=== PATIENT | female | born 1960 | race Caucasian/White ===

== ENCOUNTER 2020-07-22 11:30 | Observation (INO) ==
[2020-07-22] MEDS ORDERED: Prochlorperazine 10 MG/2 ML VIAL IVP ONE (11:46)
[2020-07-22 12:04] LABS: Prothrombin Time 11.7 Seconds (9.4-12.1)
[2020-07-22 12:12] LABS: Basophils # 0.1 K/mcL (0.0-0.2); Basophils % 0.7 %; Eosinophils # 0.4 K/mcL (0.0-0.6); Eosinophils % 3.6 %; Hematocrit 37.7 % (35.3-44.9); Hemoglobin 11.1 g/dL (11.5-15.4); Immature Granulocytes % 0.3 % (0-4); Lymphocytes # 2.6 K/mcL (0.6-4.6); Lymphocytes % 26.4 %; Mean Corpuscular HGB Conc 29.4 g/dL (31.6-35.5); Mean Corpuscular Hemoglobin 23.5 pg (28.0-33.3); Mean Corpuscular Volume 79.9 fL (83.0-100.0); Mean Platelet Volume 9.8 fL (9.4-12.4); Monocytes # 0.8 K/mcL (0.0-1.3); Platelet Count 267 K/mcL (140-400); Red Blood Count 4.72 M/mcL (3.82-4.97); Red Cell Distribution Width 16.4 % (11.5-14.5); White Blood Count 9.9 K/mcL (4.3-11.1)
[2020-07-22 12:14] LABS: BUN/Creatinine Ratio 18 (6-26); Blood Urea Nitrogen 15 mg/dL (6-20); Calcium 8.9 mg/dL (8.6-10.3); Carbon Dioxide 28 mEq/L (23-29); Chloride 105 mEq/L (98-107); Glucose 91 mg/dL (70-105); Osmolality,Calculated 290 (280-300); Potassium 4.2 mEq/L (3.5-5.1); Sodium 140 mEq/L (136-145); Troponin I < 0.03 ng/mL (< 0.04); eGFR For African Americans > 60 (> 60); eGFR For Non-African Americans > 60 (> 60)
[2020-07-22 12:31] LABS: Bilirubin,Urine Negative (Negative); Blood,Urine Negative (Negative); Clarity,Urine Clear (Clear); Color,Urine Yellow (Yellow); Glucose,Urine (UA) Normal (Normal); Ketones,Urine Negative (Negative); Leukocyte Esterase,Urine Negative (Negative); Nitrite,Urine Negative (Negative); Protein,Urine Trace mg/dL (Neg-Trace); Specific Gravity,Urine 1.024 (1.010-1.025); Urobilinogen,Urine Normal (Normal)
[2020-07-22] MEDS ORDERED: CLINDAMYCIN IVPB ONE (12:53)
[2020-07-22] MEDS ORDERED: SODIUM CHLORIDE 0.9% IVPB ONE (12:53)
[2020-07-22] MEDS ORDERED: Ibuprofen 400 MG TABLET PO ONE (12:57)
[2020-07-22] MEDS ORDERED: Naloxone 0.4 MG/ML INJ IVP PRN (15:44)
[2020-07-22] MEDS ORDERED: Acetaminophen 325 MG TABLET PO PRN (15:44)
[2020-07-22] MEDS ORDERED: Perflutren Lipid Microsphere 1.3 ML in 0.9 % Sodium Chloride 8.7 ML IVP PRN (15:47)
[2020-07-22] MEDS: cefTRIAXone 1,000 MG in Water for inj. (sterile) 10 ML IVP SCH (16:13)
[2020-07-22] MEDS ORDERED: Aspirin 325 MG TABLET PO ONE (16:38)
[2020-07-22] MEDS: *HR* Heparin 5,000 UNIT/ML VIAL SQ SCH (17:17)
[2020-07-22] MEDS ORDERED: Ibuprofen 400 MG TABLET PO PRN (18:17)
[2020-07-22] MEDS: Pregabalin 75 MG CAPSULE PO SCH (20:24)
[2020-07-22] MEDS: lamoTRIgine 100 MG TABLET PO SCH (20:24)
[2020-07-22] MEDS ORDERED: Fluticasone Propionate Nasal 50 MCG/SPRAY BOTTLE NS SCH (21:00)
[2020-07-22] MEDS ORDERED: ARIPiprazole 5 MG TABLET PO SCH (21:00)
[2020-07-23 02:54] LABS: Basophils % 0.7 %; Eosinophils # 0.3 K/mcL (0.0-0.6); Eosinophils % 4.8 %; Hematocrit 34.6 % (35.3-44.9); Hemoglobin 10.3 g/dL (11.5-15.4); Immature Granulocytes % 0.2 % (0-4); Lymphocytes # 2.3 K/mcL (0.6-4.6); Lymphocytes % 40.8 %; Mean Corpuscular HGB Conc 29.8 g/dL (31.6-35.5); Mean Corpuscular Hemoglobin 24.1 pg (28.0-33.3); Mean Corpuscular Volume 80.8 fL (83.0-100.0); Monocytes # 0.5 K/mcL (0.0-1.3); Neutrophils # 2.5 K/mcL (1.6-8.9); Platelet Count 213 K/mcL (140-400); Red Blood Count 4.28 M/mcL (3.82-4.97); Red Cell Distribution Width 16.8 % (11.5-14.5); Segmented Neutrophils % 44.5 %; White Blood Count 5.6 K/mcL (4.3-11.1)
[2020-07-23 03:16] LABS: Chol/HDL Ratio 3.9 (0-4.9)
[2020-07-23 03:17] LABS: BUN/Creatinine Ratio 19 (6-26); Blood Urea Nitrogen 15 mg/dL (6-20); Calcium 8.6 mg/dL (8.6-10.3); Carbon Dioxide 28 mEq/L (23-29); Chloride 106 mEq/L (98-107); Glucose 95 mg/dL (70-105); Osmolality,Calculated 293 (280-300); Potassium 3.9 mEq/L (3.5-5.1); Sodium 141 mEq/L (136-145); eGFR For African Americans > 60 (> 60); eGFR For Non-African Americans > 60 (> 60)
[2020-07-23] MEDS: *HR* Heparin 5,000 UNIT/ML VIAL SQ SCH (05:35)
[2020-07-23] MEDS: modafiniL 100 MG TABLET PO SCH ×2 (08:00→12:13)
[2020-07-23] MEDS: lamoTRIgine 100 MG TABLET PO SCH (08:00)
[2020-07-23] MEDS: Pregabalin 75 MG CAPSULE PO SCH (08:00)
[2020-07-23] MEDS: cefTRIAXone 1,000 MG in Water for inj. (sterile) 10 ML IVP SCH (08:00)
[2020-07-23] MEDS ORDERED: Spironolactone 25 MG TABLET PO SCH (09:00)
[2020-07-23] MEDS ORDERED: BuPROPion XL (24 HR) 150 MG TABLET PO SCH (09:00)
[2020-07-23 12:09] VITALS: BP 115/65
== END 2020-07-23 15:33 | disposition home or self-care (01) ==
LOC: EMEROOARM 11:30 → 3BNU 11:30
PROVIDERS: ADMIT Internal Medicine; ATTEND Internal Medicine